=== PATIENT | male | born 1970 | race Caucasian/White ===

== ENCOUNTER → 2018-08-17 | Day surgery (SDC) | payer OTHER | LOC: ER/OP 16:20 | PROVIDERS: ATTEND Registered Nurse Emergency | DX: Z23 Encounter for immunization (principal) | CPT/HCPCS: 90371 ==

== ENCOUNTER 2019-06-14 06:59 | Day surgery (SDC) | payer OTHER ==
[2019-06-13 12:01] VITALS: BMI 36.9
--- NOTE | 2019-06-13 15:17 | HP ---
HISTORY OF PRESENT ILLNESS: Ivan Martins is a 49-year-old male, dialyzes at [facility] on Monday, Monday, and Monday, 5 to 9 p.m. The patient works as a data migration lead in the [employer]. The patient has been on dialysis since August 2018. He had a left upper arm fistula placed in [place]. This is a cephalic vein type fistula. He is followed by Dr. Correa. ALLERGIES: NONE. SOCIAL HISTORY: Tobacco, none. Alcohol, none. PAST MEDICAL HISTORY: Diabetes mellitus; hypertension; elevated cholesterol; end-stage renal disease, on maintenance dialysis. PAST SURGICAL HISTORY: Left arm fistula. MEDICATIONS: 1. Atorvastatin 80 mg at bedtime. 2. Calcium acetate 667 mg with meals. 3. Carvedilol 6.25 mg twice a day. 4. Diclofenac for joint pain. 5. Ferrous sulfate 325 twice a day with meals. 6. Insulin Levemir 35 units subcu twice a day. 7. TRUEplus 33 g, one lancet 33 g once a week. 8. Sevelamer 800 mg 3 times a day with meals. 9. Fish oil. 10. Aspirin 81 mg a day. 11. Tylenol for pain. REVIEW OF SYSTEMS: Twelve point noncontributory. PHYSICAL EXAMINATION: VITAL SIGNS: 260 pounds, 5 feet 10 inches, 50 BMI. Blood pressure 130/67, pulse 88, temperature 98.4 degrees. HEAD, EARS, EYES, NOSE AND THROAT: Unremarkable. LUNGS: Clear to auscultation. CARDIAC: Regular rate and rhythm without murmur or gallop. ABDOMEN: Soft, obese. No hernias in groin or umbilicus. Tattoo, upper abdomen. Left arm fistula, cephalic vein. Good thrill and bruit. Orthotic shoes for Charcot joint, wearing. Cane, ambulatory in the office. ASSESSMENT: End-stage renal disease, desires peritoneal dialysis. PLAN: 1. Laparoscopic peritoneal dialysis catheter placement. He understands risks, benefits, and consents. 2. Diabetes mellitus. 3. Hypertension. Date of history and physical is I am told I need to dictate on all of these, there will always be the date I dictate unless otherwise specified, 06/06/2019. Job ID: [id number]
[2019-06-14 07:45] LABS: #Eosinphils 0.4 thou/uL (0.0-0.7); #Lymphocytes 1.5 thou/uL (1.20-3.40); #Monocytes 0.4 thou/uL (0.11-0.59); #Neutrophils 5.2 thou/uL (1.40-6.50); %Basophils 0.5 % (0.0-1.0); %Lymphocytes 20.3 % (21.0-51.0); %Monocytes 5.2 % (0.0-10.0); Hemoglobin 11.8 g/dL (14.0-18.0); Mean Corpuscular HGB CONC 35.4 g/dL (32.0-36.0); Mean Corpuscular Hemoglobin 31.3 pg (27.0-31.0); Mean Corpuscular Volume 88.4 fL (78.0-98.0); Mean Platelet Volume 7.1 fL (7.4-10.4); Platelet Count 194 thou/uL (130-400); RBC Distribution Width 14.3 % (11.5-14.5); Red Blood Cell (RBC) Count 3.77 mill/uL (4.70-6.10); White Blood Cell (WBC) Count 7.5 thou/uL (4.8-10.8)
[2019-06-14] MEDS ORDERED: Bupivacaine HCl 0.5%/Epinephrine 1:200,000/PF 30 ml Vial ONE (07:51)
[2019-06-14 07:59] LABS: Anion Gap 19 mmol/L (10-20); BUN (Urea Nitrogen) 54 mg/dL (8.9-20.6); Calc. Creatinine Clearance 15 mL/min (70-130); Calcium 8.7 mg/dL (7.8-10.44); Carbon Dioxide 28 mmol/L (22-29); Chloride 90 mmol/L (98-107); Estimated GFR-MDRD 6; Glucose 257 mg/dL (70-105); Sodium 133 mmol/L (136-145)
[2019-06-14] MEDS ORDERED: Fentanyl 100 MCG/2 ML VIAL ONE ×2 (08:29)
[2019-06-14] MEDS ORDERED: Heparin 10,000 UNITS/1 ML VIAL ONE (08:30)
[2019-06-14] MEDS ORDERED: Lidocaine 2% Jelly 5 ML TUBE ONE (08:35)
--- NOTE | 2019-06-14 10:06 | OP ---
DATE OF PROCEDURE: 06/14/2019 PREOPERATIVE DIAGNOSIS: End-stage renal disease, desires peritoneal dialysis. POSTOPERATIVE DIAGNOSIS: End-stage renal disease, desires peritoneal dialysis. PROCEDURE PERFORMED: Laparoscopic peritoneal dialysis catheter and laparoscopic omentopexy. ANESTHESIA: General, local 0.5% Marcaine with epinephrine 30 mL mixed with 2% Xylocaine 10 mL, total volume used. DESCRIPTION OF PROCEDURE: The patient was taken to the operating room, where under general anesthesia, abdomen was clipped of hair, prepared with ChloraPrep and draped in routine fashion. Bilateral subcostal incision was made. Pneumoperitoneum to 15 mmHg was obtained with a Veress needle, replaced with a 5 port, placed a video laparoscope, placed in the contralateral 5 port. Incision was made in left paraumbilical, and a stab incision was made just lateral to this for the planned exit site slightly inferior. An 8 mm port placed through this left paraumbilical incision directed caudally in the subcutaneous tissue into the rectus sheath, visualized laparoscopically, penetrating the post anterior sheath, peritoneum inferiorly/caudally, inserting the double cuffed pigtail peritoneal dialysis catheter, placing the internal cuff beneath the rectus sheath, removing the 8 mm port. [place] dissector was then placed at the planned exit site to the counterincision, grasping the catheter and pulling out the exit site, placing the external cuff beneath the skin. Subcutaneous tissue was approximated with 3-0 Monocryl, skin with 4-0 Monocryl as the catheter was flushed with heparinized saline solution 1000 units heparin per mL, 10 mL, and catheter cap applied. Laparoscopic omentopexy performed. Omentum was very bulky and heavy, and it was pexed to the superior abdominal wall. 0 Vicryl suture with a GraNee needle used with a transabdominal wall fixation technique. Once this was completed, good hemostasis was noted. Pneumoperitoneum evacuated. All instruments were removed. All skin incisions were approximated with subdermal 4-0 Monocryl and Vancleave glue and sterile dressings applied. Job ID: [id number]
--- NOTE | 2019-06-17 11:33 | EKG ---
Test Reason : PREOP Blood Pressure : / mmHG Vent. Rate : 079 BPM Atrial Rate : 079 BPM P-R Int : 138 ms QRS Dur : 084 ms QT Int : 416 ms P-R-T Axes : 029 051 070 degrees QTc Int : 477 ms Normal sinus rhythm Prolonged QT Abnormal ECG No previous ECGs available Confirmed by Torin BUSTILLOS ([id number]) on 06/17/2019 11:33:27 AM Referred By: MARCO Confirmed By:Torin BUSTILLOS
== END 2019-06-14 11:00 | disposition home or self-care (01) ==
LOC: SDC 06:59
PROVIDERS: ATTEND Specialist
PROC: 0DQU4ZZ Repair Omentum, Percutaneous Endoscopic Approach (ICD-10-PCS; principal; 2019-06-14)
PROC: 0WHG43Z Insertion of Infusion Device into Peritoneal Cavity, Percutaneous Endoscopic Approach (ICD-10-PCS; principal; 2019-06-14)
DX: I12.0 Hypertensive chronic kidney disease with stage 5 chronic kidney disease or end stage renal disease (principal); E11.22 Type 2 diabetes mellitus with diabetic chronic kidney disease; N18.6 End stage renal disease; E78.00 Pure hypercholesterolemia, unspecified; M19.90 Unspecified osteoarthritis, unspecified site; Z79.4 Long term (current) use of insulin; Z79.82 Long term (current) use of aspirin; Z79.899 Other long term (current) drug therapy; Z99.2 Dependence on renal dialysis
CPT/HCPCS: 36415; 36416; 80048; 85025; 93005; 93010; J0670; J0690; J1644; J3010

== ENCOUNTER 2019-08-23 14:10 | Emergency (ER) | payer OTHER, MEDICARE ==
[2019-08-23] MEDS ORDERED: Morphine 4 MG/ML VIAL ONE (14:52)
[2019-08-23 15:23] LABS: #Basophils 0.1 thou/uL (0.0-0.2); #Eosinphils 0.3 thou/uL (0.0-0.7); #Lymphocytes 1.3 thou/uL (1.20-3.40); #Monocytes 0.5 thou/uL (0.11-0.59); #Neutrophils 6.7 thou/uL (1.40-6.50); %Basophils 0.7 % (0.0-1.0); %Eosinophils 3.3 % (0.0-10.0); %Monocytes 5.9 % (0.0-10.0); %Neutrophils 75.1 % (42.0-75.0); Hemoglobin 11.5 g/dL (14.0-18.0); Mean Corpuscular HGB CONC 34.2 g/dL (32.0-36.0); Mean Corpuscular Hemoglobin 31.3 pg (27.0-31.0); Mean Corpuscular Volume 91.3 fL (78.0-98.0); Mean Platelet Volume 7.1 fL (7.4-10.4); Platelet Count 234 thou/uL (130-400); RBC Distribution Width 13.7 % (11.5-14.5); Red Blood Cell (RBC) Count 3.67 mill/uL (4.70-6.10)
--- NOTE | 2019-08-23 15:28 | ULT ---
EXAM: Left lower extremity venous Doppler PROVIDED CLINICAL HISTORY: Pain FINDINGS: Grayscale and color Doppler sonography with spectral analysis was performed of the left common femora l, femoral, popliteal, posterior tibial, greater saphenous and profunda femoral veins. The evaluated venous structures demonstrate a normal sonographic appearance. IMPRESSION: No sonographic evidence for left lower extremity deep venous thrombosis.
[2019-08-23 15:37] LABS: ALT (SGPT) 8 U/L (8-55); AST (SGOT) 7 U/L (5-34); Albumin 4.5 g/dL (3.5-5.0); Alkaline Phosphatase 130 U/L (40-110); Anion Gap 19 mmol/L (10-20); BUN (Urea Nitrogen) 66 mg/dL (8.9-20.6); Bilirubin, Total 0.5 mg/dL (0.2-1.2); CK (CPK) 98 U/L (30-200); Calc. Creatinine Clearance 0 mL/min (70-130); Calcium 9.3 mg/dL (7.8-10.44); Carbon Dioxide 32 mmol/L (22-29); Chloride 91 mmol/L (98-107); Estimated GFR-MDRD 5; Globulin 3.9 g/dL (2.4-3.5); Glucose 289 mg/dL (70-105); Potassium 3.8 mmol/L (3.5-5.1); Protein, Total 8.4 g/dL (6.0-8.3); Sodium 138 mmol/L (136-145)
[2019-08-23] MEDS ORDERED: Ondansetron PF 4 MG/2 ML Vial ONE (15:39)
[2019-08-23 16:00] LABS: Bacteria/HPF None Seen HPF (None Seen); Bilirubin Negative (Negative); Blood, Urine Negative (Negative); Clarity Clear (Clear); Glucose, Urine (Dipstick) Greater than 1000 mg/dL (Negative); Leukocyte Negative Leu/uL (Negative); Nitrite Negative (Negative); Protein, Urine (Dipstick) 200 mg/dL (Neg-Trace); RBC/HPF 0-3 HPF (0-3); Squamous Epithelial None Seen HPF (0-3); Urobilinogen Normal mg/dL (Less than 2); WBC/HPF 0-3 HPF (0-3)
== END 2019-08-23 16:58 | disposition home or self-care (01) ==
LOC: ERS 14:10
DX: M79.662 Pain in left lower leg (principal); F17.220 Nicotine dependence, chewing tobacco, uncomplicated; Z87.891 Personal history of nicotine dependence
CPT/HCPCS: 36415; 80053; 81003; 81015; 82550; 85025; 85379; 96374; 96375; J2270; J2405